=== PATIENT | male | born 1955 | race African-American/Black ===

== ENCOUNTER 2023-07-23 10:03 | Inpatient (IN) | payer MEDICARE, MEDICAID ==
[~2023-07-23] VITALS: Ht 177.8 cm; Wt 71.2 kg
[2023-07-23] MEDS ORDERED: LOSARTAN (10:07)
[2023-07-23] MEDS ORDERED: ASPIRIN (10:07)
[2023-07-23 10:47] LABS: BASOPHILS % 0.4 % (0.0-2.0); EOSINOPHILS % 3.3 % (0.0-5.0); HEMATOCRIT. 36.2 % (42.0-52.0); HEMOGLOBIN. 12.5 g/dL (14.0-18.0); LYMPHOCYTES % 8.4 % (20.0-50.0); MEAN CORPUSCULAR HEMOGLOBIN 32.3 pg (28.0-32.0); MEAN CORPUSCULAR HGB CONC 34.5 g/dL (31.0-37.0); MEAN CORPUSCULAR VOLUME 93.7 fL (80.0-94.0); MONOCYTES % 6.2 % (2.0-8.0); NEUTROPHILS % 81.7 % (40.0-76.0); PLATELET 489 x1000/uL (130-400); RED BLOOD CELL COUNT 3.86 mill/uL (4.7-6.1); RED CELL DISTRIBUTION WIDTH 13.1 % (11.6-14.6); WHITE BLOOD COUNT 10.3 x1000/uL (4.5-11.0)
[2023-07-23 11:11] LABS: ALANINE AMINOTRANSFERASE 26 IU/L (10-49); ALBUMIN 3.8 g/dL (3.2-4.8); ASPARTATE AMINOTRANSFERASE 20 IU/L (<34); BILIRUBIN TOTAL 0.2 mg/dL (0.1-1.0); CALCIUM 8.8 mg/dL (8.7-10.4); CARBON DIOXIDE 28 mEq/L (21-32); CHLORIDE 107 mEq/L (98-107); CREATININE 0.8 mg/dL (0.6-1.3); GLUCOSE 136 mg/dL (70-105); POTASSIUM 4.2 mEq/L (3.5-5.1); PROTEIN TOTAL 7.6 g/dL (6.0-8.3); SODIUM 138 mEq/L (136-145); UREA NITROGEN BLOOD 13 mg/dL (9-23)
[2023-07-23 11:22] LABS: TROPONIN I HIGH SENSITIVITY 115 ng/L (3.0-53)
[2023-07-23] MEDS ORDERED: ONDANSETRON HCL 4MG/2ML INJ IV PRN (15:00)
[2023-07-23] MEDS ORDERED: ENOXAPARIN 40MG/0.4ML SYR SUBCUT SCH (15:00)
[2023-07-23] MEDS ORDERED: IPRATROPIUM/ALBUTEROL 0.5-3(2.5)MG/3ML NEB HHN PRN (15:00)
[2023-07-23] MEDS ORDERED: ACETAMINOPHEN 325MG TABLET PO PRN (15:00)
[2023-07-23] MEDS ORDERED: CLONIDINE 0.1MG TABLET PO PRN (15:00)
[2023-07-23] MEDS ORDERED: MORPHINE SULFATE 2 MG/ML CPJ (NOT FOR IM USE) IV PRN (15:00)
[2023-07-23] MEDS ORDERED: DIPHENHYDRAMINE 50MG/ML VIAL IV PRN (15:00)
[2023-07-23] MEDS ORDERED: NALOXONE HCL 0.4MG/ML VIAL IV PRN (15:15)
[2023-07-23] MEDS ORDERED: ENOXAPARIN 80MG/0.8ML SYR SUBCUT NR (16:00)
[2023-07-23] MEDS: CARVEDILOL 6.25 MG TABLET PO SCH (16:58)
[2023-07-23 18:00] LABS: INR 1.1; PROTHROMBIN TIME 11.6 sec (9.6-11.0)
[2023-07-23 18:43] VITALS: BP 187/97; PULSE 69; RESP 23; TEMP 98.2
[2023-07-23 20:00] VITALS: BP 162/86; PULSE 70; RESP 21; TEMP 99.1
[2023-07-23 20:43] VITALS: BP 183/96; PULSE 71; RESP 14; TEMP 98.2
[2023-07-23] MEDS: ATORVASTATIN CALCIUM 40MG TABLET PO SCH (22:04)
[2023-07-23 23:35] LABS: *AMPHETAMINES SCREEN URINE NEGATIVE (NEGATIVE); *BARBITURATES SCREEN URINE NEGATIVE (NEGATIVE); *BENZODIAZEPINES SCREEN URINE NEGATIVE (NEGATIVE); *COCAINE SCREEN URINE NEGATIVE (NEGATIVE); CANNABINOID URINE SCREEN PRESUMPTIVE POSITIVE (NEGATIVE); ECSTASY MDMA SCREEN URINE NEGATIVE (NEGATIVE); METHADONE URINE SCREEN Neg (NEGATIVE); OPIATES URINE SCREEN NEGATIVE (NEGATIVE); PHENCYCLIDINE URINE SCREEN NEGATIVE (NEGATIVE)
[2023-07-24] VITALS: BP 164/90; PULSE 68; RESP 18; TEMP 98.9
[2023-07-24 00:05] LABS: TROPONIN I HIGH SENSITIVITY 15140 ng/L (3.0-53)
[2023-07-24 04:00] VITALS: BP 155/87; PULSE 62; RESP 26; TEMP 98.7
[2023-07-24] MEDS ORDERED: ENOXAPARIN 80MG/0.8ML SYR SUBCUT SCH (06:00)
[2023-07-24 07:15] LABS: BASOPHILS % 0.2 % (0.0-2.0); EOSINOPHILS % 0.4 % (0.0-5.0); HEMATOCRIT. 38.4 % (42.0-52.0); HEMOGLOBIN. 12.6 g/dL (14.0-18.0); LYMPHOCYTES % 7.5 % (20.0-50.0); MEAN CORPUSCULAR HEMOGLOBIN 30.3 pg (28.0-32.0); MEAN CORPUSCULAR HGB CONC 32.8 g/dL (31.0-37.0); MEAN CORPUSCULAR VOLUME 92.3 fL (80.0-94.0); MEAN PLATELET VOLUME 7.5 fl (7.4-10.4); MONOCYTES % 5.3 % (2.0-8.0); NEUTROPHILS % 86.6 % (40.0-76.0); PLATELET 519 x1000/uL (130-400); RED BLOOD CELL COUNT 4.17 mill/uL (4.7-6.1); RED CELL DISTRIBUTION WIDTH 13.1 % (11.6-14.6); WHITE BLOOD COUNT 14.5 x1000/uL (4.5-11.0)
[2023-07-24 07:48] LABS: ALANINE AMINOTRANSFERASE 29 IU/L (10-49); ALBUMIN 3.5 g/dL (3.2-4.8); ASPARTATE AMINOTRANSFERASE 122 IU/L (<34); BILIRUBIN TOTAL 0.6 mg/dL (0.1-1.0); CALCIUM 8.9 mg/dL (8.7-10.4); CARBON DIOXIDE 21 mEq/L (21-32); CHLORIDE 104 mEq/L (98-107); CREATININE 0.7 mg/dL (0.6-1.3); GLUCOSE 134 mg/dL (70-105); POTASSIUM 3.8 mEq/L (3.5-5.1); PROTEIN TOTAL 7.2 g/dL (6.0-8.3); SODIUM 135 mEq/L (136-145); UREA NITROGEN BLOOD 9 mg/dL (9-23)
[2023-07-24 08:00] VITALS: BP 176/88; PULSE 65; RESP 20; TEMP 98.7
[2023-07-24 08:10] LABS: TROPONIN I HIGH SENSITIVITY 19674 ng/L (3.0-53)
[2023-07-24] MEDS ORDERED: AMLODIPINE 5MG TABLET PO SCH (09:00)
[2023-07-24] MEDS ORDERED: NIFEDIPINE XL 30MG TAB PO NR (09:00)
[2023-07-24] MEDS: ASPIRIN 81MG EC TABLET PO SCH (09:03)
[2023-07-24] MEDS: CARVEDILOL 6.25 MG TABLET PO SCH ×2 (09:03→17:17)
[2023-07-24] MEDS: LISINOPRIL 5MG TABLET PO SCH (10:52)
[2023-07-24] MEDS ORDERED: IODIXANOL 320MG/ML 100 ML BOTTLE IV ONE ×2 (11:50→12:42)
[2023-07-24] MEDS ORDERED: FENTANYL CITRATE/PF 50MCG/ML 2ML VIAL ONE (11:50)
[2023-07-24] MEDS ORDERED: VERAPAMIL HCL 2.5 MG/1 ML 2ML VIAL IV ONE (11:50)
[2023-07-24] MEDS ORDERED: HEPARIN 1000 UNITS/ML 10ML ONE ×2 (11:51→12:46)
[2023-07-24] MEDS ORDERED: MIDAZOLAM HCL 2 MG/2 ML VIAL ONE (11:51)
[2023-07-24] MEDS ORDERED: DIPHENHYDRAMINE 50MG/ML VIAL ONE (11:51)
[2023-07-24] MEDS ORDERED: LIDOCAINE HCL 1% 20ML VIAL (Pyxis) INJ ONE (11:51)
[2023-07-24] MEDS ORDERED: CLOPIDOGREL 75MG TABLET ONE (12:23)
[2023-07-24] MEDS ORDERED: ACETAMINOPHEN 325MG TABLET PO PRN (13:45)
[2023-07-24] MEDS ORDERED: ATROPINE SULFATE 1MG/10ML SYR IV PRN (13:45)
[2023-07-24] MEDS: SODIUM CHLORIDE 0.45% 1,000 ML IV SCH (14:00)
[2023-07-24] MEDS ORDERED: LOSA25TA26 PO (14:16)
[2023-07-24] MEDS ORDERED: CARV12.545 PO (14:16)
[2023-07-24] MEDS ORDERED: SPIR25TA6 PO (14:16)
[2023-07-24 16:00] VITALS: BP 136/75; PULSE 72; RESP 20; TEMP 98
[2023-07-24 20:00] VITALS: BP 115/55; PULSE 71; RESP 29; TEMP 98.4
[2023-07-24] MEDS: ATORVASTATIN CALCIUM 40MG TABLET PO SCH (21:06)
[2023-07-25] VITALS: BP 132/73; PULSE 71; RESP 28; TEMP 99.2
[2023-07-25] MEDS: SODIUM CHLORIDE 0.45% 1,000 ML IV SCH (03:20)
[2023-07-25 04:00] VITALS: BP 122/61; PULSE 85; RESP 20; TEMP 98.6
[2023-07-25 07:47] LABS: HEMATOCRIT. 35.2 % (42.0-52.0); HEMOGLOBIN. 12.1 g/dL (14.0-18.0); MEAN CORPUSCULAR HEMOGLOBIN 31.3 pg (28.0-32.0); MEAN CORPUSCULAR HGB CONC 34.5 g/dL (31.0-37.0); MEAN CORPUSCULAR VOLUME 90.8 fL (80.0-94.0); MEAN PLATELET VOLUME 7.4 fl (7.4-10.4); PLATELET 501 x1000/uL (130-400); RED BLOOD CELL COUNT 3.87 mill/uL (4.7-6.1); RED CELL DISTRIBUTION WIDTH 13.4 % (11.6-14.6); WHITE BLOOD COUNT 17.4 x1000/uL (4.5-11.0)
[2023-07-25 08:00] VITALS: BP 121/65; PULSE 84; RESP 20; TEMP 97.5
[2023-07-25 08:06] LABS: DIFFERENTIAL COMMENT 1
[2023-07-25] MEDS: ASPIRIN 81MG EC TABLET PO SCH (08:08)
[2023-07-25] MEDS: LISINOPRIL 5MG TABLET PO SCH (08:08)
[2023-07-25] MEDS: CARVEDILOL 6.25 MG TABLET PO SCH (08:08)
[2023-07-25 08:33] LABS: CALCIUM 8.7 mg/dL (8.7-10.4); CARBON DIOXIDE 19 mEq/L (21-32); CHLORIDE 102 mEq/L (98-107); CREATININE 0.7 mg/dL (0.6-1.3); GLUCOSE 117 mg/dL (70-105); POTASSIUM 3.8 mEq/L (3.5-5.1); SODIUM 133 mEq/L (136-145); UREA NITROGEN BLOOD 10 mg/dL (9-23)
[2023-07-25] MEDS ORDERED: CLOPIDOGREL 75MG TABLET PO SCH (09:00)
[2023-07-25 12:34] VITALS: BP 132/76; PULSE 70; RESP 24; TEMP 97.2
[2023-07-25] MEDS ORDERED: COR6 PO (13:37)
[2023-07-25] MEDS ORDERED: ASPI-1406 PO (13:37)
[2023-07-25] MEDS ORDERED: LIP40 PO (13:37)
[2023-07-25] MEDS ORDERED: LISI-186 PO (13:37)
[2023-07-25] MEDS ORDERED: CLOP-31 PO ×3 (13:37→13:38)
[2023-07-25 13:47] VITALS: BP 132/76; PULSE 70; TEMP 97.2; O2SAT 98
[2023-07-25 16:36] LABS: PLATELET ESTIMATE INCREASED
== END 2023-07-25 15:46 | disposition home health service (06) | DRG 174 ==
LOC: ER 10:03 → EDBD 10:03 → 3WST 13:03 → EDBEDREQ 13:04
PROVIDERS: ADMIT Internal Medicine; ATTEND Internal Medicine
PROC: 4A023N7 Measurement of Cardiac Sampling and Pressure, Left Heart, Percutaneous Approach (ICD-10-PCS; principal; 2023-07-24)
PROC: 027034Z Dilation of Coronary Artery, One Artery with Drug-eluting Intraluminal Device, Percutaneous Approach (ICD-10-PCS; 2023-07-24)
PROC: B211YZZ Fluoroscopy of Multiple Coronary Arteries using Other Contrast (ICD-10-PCS; 2023-07-24)
PROC: B310YZZ Fluoroscopy of Thoracic Aorta using Other Contrast (ICD-10-PCS; 2023-07-24)
DX: I21.4 Non-ST elevation (NSTEMI) myocardial infarction (principal); D64.9 Anemia, unspecified; I25.10 Atherosclerotic heart disease of native coronary artery without angina pectoris; I10 Essential (primary) hypertension; Z20.822 Contact with and (suspected) exposure to COVID-19; I49.3 Ventricular premature depolarization; E78.5 Hyperlipidemia, unspecified; I24.9 Acute ischemic heart disease, unspecified; Z91.148 Patient's other noncompliance with medication regimen for other reason; Z91.199 Patient's noncompliance with other medical treatment and regimen due to unspecified reason
CPT/HCPCS: 36415; 71045; 80048; 80053; 80305; 83880; 84484; 85025; 85347; 87426; 92928; 93005; 93306; 93458; 93970; 99285; C1725; C1769; C1874; C1887; C1893; J1200; J1644; J1650; J2250; J3010; J3490; Q9967